=== PATIENT | female | born 1935 | race Caucasian/White ===

== ENCOUNTER → 2018-08-31 | Outpatient (CLI) | payer MEDICARE ==
[~2018-08-31] MED LIST: ASPI81CH PO; CIPRSO OS; DONE10 PO; ERGCAF PO; LEVSOD50 PO; LEVSOD75 PO; LORA.5 PO; NAPR500 PO; ONDA4ODT MM; PRED10 PO; Prozac20 MG
== END ==
LOC: LAB 16:56 → LAB SHORT 16:56
DX: R22.2 Localized swelling, mass and lump, trunk (principal)
CPT/HCPCS: 87070; 87075; 87077; 87147; 87186; 87205

== ENCOUNTER 2018-11-12 18:25 | Emergency (ER) | payer MEDICARE | END 2018-11-12 20:01 | disposition left against medical advice (07) | LOC: ER 18:25 | DX: Z53.21 Procedure and treatment not carried out due to patient leaving prior to being seen by health care provider (principal) ==